=== PATIENT | female | born 1980 | race Caucasian/White ===

== ENCOUNTER → 2017-01-12 | Outpatient (CLI) | payer BC ==
--- NOTE | 2017-01-12 09:35 | KCIC ---
MRI right knee without contrast dated 01/12/2017 8:00 AM Indication: Right knee pain difficulty with weightbearing instability recent injury Comparison: No comparison is available. Technique: Routine multiplanar multisequence imaging performed. . Findings: Complete tear of the anterior cruciate ligament at its femoral attachment/mid substance. There is mild increased signal within the substance of the PCL. Increased signal along the superficial and deep margins of the medial collateral ligament complex. There is disruption of the MCL fibers proximally. The meniscal femoral attachments are ill-defined and there is fluid bright signal interposed between the medial meniscal body and medial joint capsule. Mild increased signal within the femoral collateral ligament at its femoral attachment. The iliotibial band and popliteus tendon are intact. Biceps femoris intact. Quadriceps and patellar tendon are intact. There is mild increased signal in the substance of the distal patellar tendon. Patchy prepatellar and superficial infrapatellar edema. Medial and lateral retinaculum are intact. There is blunted morphology of the lateral meniscal root with some redundant low signal at the intercondylar notch. The anterior horn and body are intact. Medial meniscus is normal in morphology. There is a small radial tear at the posterior horn/body junction. There are focal bone contusions of the posterior medial and posterior lateral tibial plateau. Slight cortical step-off at the posterior lateral tibial plateau suggesting small impaction fracture. There is also mild edema within the anterior medial tibia. Distal femur is intact. Mild tricompartmental hypertrophic change with thinning and surface irregularity of the articular cartilage is suspected small zone of full-thickness cartilage loss at the weightbearing surface lateral femoral condyle. Moderate size joint effusion. Small shelflike medial patellar plica partially covers the medial femoral trochlea. No significant popliteal cyst. No intra-articular loose body. IMPRESSION: 1. Complete tear of the anterior cruciate ligament. 2. High-grade strain of the proximal MCL. 3. Low-grade strain of the fibular collateral ligament at its femoral attachment. 4. Suspected small radial tear at the lateral meniscal root. There may be a small displaced component extending into the intercondylar notch. 5. Multifocal bone contusions of the proximal tibia. There is a suspected small impaction fracture of the posterior lateral tibial plateau. 5. Moderate size joint effusion. 6. Mild patellar tendinosis. Electronically signed by: Eugenio Gil MD (01/12/2017 9:32 AM) [id number]
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
== END | disposition home or self-care (01) ==
LOC: KCIC MRI 07:43
PROVIDERS: ATTEND Physician Assistant Medical
DX: S83.511A Sprain of anterior cruciate ligament of right knee, initial encounter (principal); M25.461 Effusion, right knee; M25.511 Pain in right shoulder; X58.XXXA Exposure to other specified factors, initial encounter; Y93.89 Activity, other specified; Y92.89 Other specified places as the place of occurrence of the external cause; Y99.8 Other external cause status
CPT/HCPCS: 73221; 73721